=== PATIENT | male | born 1945 | race Caucasian/White ===

== ENCOUNTER → 2017-08-29 | Outpatient (CLI) | payer MEDICARE, BC ==
[~2017-08-29] MED LIST: AMLO5TAB2 PO; BUSP10TA PO; BUSP5TA PO; COUM2.5T17 PO; DOXE50CA PO; HYDR-3713 PO; HYDR25TAB PO; LEVO125T4 PO; MAGN1TAB25 PO; MULTCAP PO; PERCOCET PO; POTA595T8 PO; VITA100067 PO; ZINC50TA PO; ZOLP5TAB PO; [UNRECOGNIZED DRUG - CODE] PO; aspirin OR; buspirone OR; vitamin D OR
--- NOTE | 2017-08-29 13:00 | REP ---
Three-phase radionuclide bone scan of the knees: The patient has a left knee arthroplasty. The vascular phase of the study is bilaterally symmetric. On the soft tissue phase there is circumferential uptake at the femoral portion of the arthroplasty extending superiorly in the suprapatellar pouch. On the skeletal phase of the study there is a slight uptake at the interface of the tibial portion of the arthroplasty, not unusual. There is also uptake in the right knee, likely degenerative. Impression: The findings are nonspecific but are compatible with synovial inflammation in the suprapatellar pouch . There is slight uptake at the interface of the arthroplasty, not unusual. On the vascular phase, the uptake is bilaterally symmetric. Signed by Kendell Guerra MD 08/29/2017 12:51 P
== END ==
LOC: M RAD 09:42
PROVIDERS: ATTEND Physician Assistant Surgical
DX: Z96.652 Presence of left artificial knee joint (principal)
CPT/HCPCS: 78315; A9503

== ENCOUNTER → 2019-04-20 | Outpatient (CLI) | payer MEDICARE, BC, OTHER ==
[~2019-04-20] MED LIST changes: +ACET-897 PO; +AMBI5TAB PO; -AMLO5TAB2 PO; +AMLO5TAB6 PO; +ASPI81TA85 PO; +BENA25CA4 PO; +CARI200T PO; +HYDR-2541 PO; -MAGN1TAB25 PO; +MAGN1TAB26 PO; +MAGN400C PO; +MELA3TAB42 PO; +MYRB50TA PO; +SILD25TA PO; +SOMA350T PO; +VITA-157 PO; +VITAD1000T PO; +ZINC1TAB2 PO; -[UNRECOGNIZED DRUG - CODE] PO
[2019-04-20 12:11] LABS: HEMOGLOBIN 13.2 g/dl (13.5-17.5); MEAN CORPUSCULAR HEMOGLOBIN 38.5 pg (27.0-33.0); MEAN CORPUSCULAR HGB CONC 35.7 g/dl (32.0-36.5); MEAN CORPUSCULAR VOLUME 107.9 fl (80.0-96.0); PLATELET COUNT, AUTOMATED 287 10^3/uL (150-450); RED BLOOD COUNT 3.43 10^6/uL (4.30-6.10); WHITE BLOOD COUNT 6.4 10^3/uL (4.0-10.0)
[2019-04-20 12:21] LABS: INR 1.06; PROTHROMBIN TIME 13.9 SECONDS (12.1-14.4)
[2019-04-20 12:38] LABS: ERYTHROCYTE SEDIMENTATION RATE 7 mm/hr (0-20)
--- NOTE | 2019-04-20 12:38 | REP ---
Chest two views HISTORY: Preop Comparison: 02/28/2016 The lungs are clear. The heart is normal in size. The pulmonary vasculature is normal in appearance. A large hiatal hernia is present. The bony structure is intact. IMPRESSION: 1. No acute disease. 2. Large hiatal hernia. Electronically Signed by Mitchel Orozco MD 04/20/2019 12:29 P
[2019-04-20 12:55] LABS: ALBUMIN 3.9 GM/DL (3.2-5.2); ALT/SGPT 25 U/L (12-78); BILIRUBIN,TOTAL 1.6 MG/DL (0.2-1.0); BLOOD UREA NITROGEN 17 MG/DL (7-18); CALCIUM LEVEL 8.5 MG/DL (8.8-10.2); CARBON DIOXIDE LEVEL 26 MEQ/L (21-32); CHLORIDE LEVEL 104 MEQ/L (98-107); CREATININE FOR GFR 0.86 MG/DL (0.70-1.30); GLOMERULAR FILTRATION RATE > 60.0 (>42); GLUCOSE, FASTING 87 MG/DL (70-100); POTASSIUM SERUM 3.9 MEQ/L (3.5-5.1); SODIUM LEVEL 139 MEQ/L (136-145); TOTAL PROTEIN 6.6 GM/DL (6.4-8.2)
--- NOTE | 2019-04-20 20:51 | ECGEPIP ---
[facility] Test Date: 2019-04-20 Pat Name: PEREZ FLORES Department: Room: - Gender: Male Kitchen Cleaner: : 1945 Requested By: Noel Landaverde Order Number: [id number] Reading MD: Syed Fletcher Measurements Intervals [place] Rate: 63 P: 68 ID: [id number] QRS: 43 QRSD: 93 T: 41 QT: 400 QTc: 411 Interpretive Statements SINUS RHYTHM Normal Electronically Signed on 04-20-2019 20:51:19 EDT by Syed Fletcher
== END ==
LOC: M LAB 11:14
PROVIDERS: ATTEND Orthopaedic Surgery
DX: M16.12 Unilateral primary osteoarthritis, left hip (principal); Z79.01 Long term (current) use of anticoagulants

== ENCOUNTER 2019-05-03 05:44 | Inpatient (IN) | payer MEDICARE, BC, OTHER ==
--- NOTE | 2019-04-30 11:26 | HPE ---
DATE OF ADMISSION: 05/03/2019 ATTENDING PHYSICIAN: Dr. Noel Landaverde. CHIEF COMPLAINT: Left hip pain and stiffness. HISTORY: The patient is a pleasant 74-year-old male with progressively worsening left hip pain and stiffness. He has failed to improve with conservative measures. He continues to have symptoms with weightbearing activities and activities of daily living. The patient has consented for an elective left total hip arthroplasty with Dr. Landaverde for his continued symptoms. Medical optimization completed with Dr. Mitchel Gray and was reviewed today at visit. CURRENT MEDICATIONS: - Ambien 10 mg 1/2 tablet at bedtime - aspirin 81 mg daily - Benadryl 25 mg twice daily as needed - carisoprodol 350 mg as needed every hour - doxepin 50 mg daily - stool softener 100 mg daily - [id number] mcg daily - magnesium 200 mg daily - daily multivitamin - Myrbetriq 50 mg daily - [place] 5/325 mg every 6 hours as needed - Viagra 25 mg as needed - Ventolin inhaler every 4 hours as needed. - vitamin D, vitamin E. ALLERGIES: No known drug allergies CHRONIC MEDICAL CONDITIONS: Hypertension. Stomach ulcer. Heart murmur. Arthritis. Low back pain. Anxiety. Hypothyroid. Reactive airway disease. Anemia. History of prostate cancer. PAST SURGICAL HISTORY: Bunionectomy. Deviated septum. Bilateral total knee arthroplasties. Right hip arthroplasty. Stomach ulcer. Left foot surgery. SOCIAL HISTORY: He is a former smoker and does use alcohol daily. REVIEW OF SYSTEMS: The patient denies fevers, chills, nausea, vomiting or diarrhea. He denies chest pain, shortness of breath, lightheadedness, headaches or abdominal pain. He denies any recent upper respiratory or urinary tract infection symptoms. He does not have continued left hip pain with weightbearing activities and activities of daily living. PHYSICAL EXAMINATION: GENERAL: Well-nourished, well-developed male in no apparent distress. He is alert, oriented and cooperative. Mood and affect are appropriate. VITAL SIGNS: Blood pressure 103/60, respirations 16, heart rate 62, height 67 inches, weight 198.9 pounds. BMI 31.1, temperature 97.6. NECK: Supple without lymphadenopathy. HEART: Regular rate and rhythm. LUNGS: Clear to auscultation bilaterally. ABDOMEN: Soft and nontender to palpation. Bowel sounds are present. MUSCULOSKELETAL: Left hip exhibits no gross abnormalities. His skin is intact. There is mild tenderness along the morning and anterolateral thigh. The patient has significantly decreased flexion and internal rotation at the hip. Left lower extremity strength is 5/5. Calf is soft, nontender to palpation with no palpable cords noted. He is neurovascularly intact distally. He is walking with a limp favoring the left lower extremity. LABORATORY DATA EKG sinus rhythm. Chest x-ray: No acute disease, large hiatal hernia. Left hip x-ray notable for end-stage degenerative changes. Prothrombin time 13.9, INR 1.06. Complete blood count: ESR 7, WBCs 6.4, RBCs decreased at 3.43, hemoglobin decreased at 13.2, hematocrit decreased at 37, MCV elevated at 107.9, MCH elevated at 38.5, platelets 287. Comprehensive metabolic profile: Fasting glucose 87, BUN 17, creatinine for GFR 0.86, GFR greater than 60, sodium 139, potassium 3.9, chloride 104, carbon dioxide 26, anion gap 9, calcium decreased at 8.5, AST 15, ALT 25, alkaline phosphatase 114, total bilirubin elevated at 1.6, total protein 6.6, albumin 3.9, albumin-globulin ratio 1.44. IMPRESSION: Left hip degenerative arthritis with x-rays notable for end-stage degenerative changes. PLAN: The patient has consented for an elective left total hip arthroplasty with Dr. Landaverde. Medical optimization completed with Dr. Mitchel Gray.
[~2019-05-03] VITALS: Ht 152.4 cm; Wt 92.4 kg
[2019-05-03] MEDS ORDERED: ceFAZolin 2 GM/D5W 50 ML IV BAG (J0690 PER 500MG) As Ordered ONE (06:11)
[2019-05-03] MEDS ORDERED: LR 1,000 ML IV ONE (06:15)
[2019-05-03] MEDS ORDERED: EPINEPHrine INJ 1 MG/ML 1ML AMP As Ordered ONE (06:59)
[2019-05-03] MEDS ORDERED: TRANEXAMIC ACID 100 MG/ML 10ML VIAL As Ordered ONE (07:00)
[2019-05-03] MEDS ORDERED: BUPIVACAINE LIPOSOME/PF 1.3% 20ML VIAL (13.3MG/ML)(EXPAREL)(C9290 PER1MG) As Ordered ONE (07:00)
[2019-05-03] MEDS ORDERED: fentaNYL 100 MCG/2 ML INJECTION (J3010) As Ordered ONE (07:08)
[2019-05-03] MEDS ORDERED: MIDAZOLAM INJ 2 MG/2 ML VIAL (J2250) As Ordered ONE (07:09)
[2019-05-03] MEDS ORDERED: ONDANSETRON 4MG/2ML VIAL (J2405) As Ordered ONE (07:09)
[2019-05-03] MEDS ORDERED: PROPOFOL 200 MG/20 ML VIAL As Ordered ONE ×2 (07:09→08:55)
[2019-05-03] MEDS ORDERED: LIDOCAINE 2% INJ 100 MG/5 ML SDV (FOR ANES.) As Ordered ONE (07:13)
[2019-05-03] MEDS: ceFAZolin 1GM INJ (J0690 PER 500MG) As Ordered ONE ×2 (07:49→08:15)
[2019-05-03] MEDS ORDERED: KETAMINE HCL 200 MG/20 ML VIAL As Ordered ONE (08:35)
--- NOTE | 2019-05-03 08:51 | IPN ---
DATE OF SERVICE: 05/03/2019 Patient seen and examined. He wished to go ahead with a left total hip arthroplasty. He understands the nature of this, the risks of bleeding, infection, damage to nerves, vessels, persistent pain, wear, loosening, dislocation, leg length inequality, blood clots, medical problems, , among others. Preop clearance was obtained. Site and side initialed left hip.
[2019-05-03] MEDS ORDERED: ePHEDrine SULFATE 25 MG/5 ML(5MG/ML) SYRINGE As Ordered ONE (08:52)
[2019-05-03] MEDS ORDERED: PHENYLephrine HCL 500 MCG/5 ML (100MCG/ML) SYRINGE (J2370) As Ordered ONE (08:52)
[2019-05-03] MEDS ORDERED: HYDROMORPHONE HCL 0.5 MG/ 0.5 ML SYRINGE (J1170 PER 1) IV PRN (10:00)
[2019-05-03] MEDS ORDERED: ONDANSETRON 4MG/2ML VIAL (J2405) IV PRN ×2 (10:00→11:00)
[2019-05-03] MEDS ORDERED: LR 1,000 ML IV SCH ×2 (10:00→11:00)
[2019-05-03] MEDS: fentaNYL 100 MCG/2 ML INJECTION (J3010) IV PRN ×4 (10:20→10:35)
[2019-05-03] MEDS: PERCOCET 5MG/325MG TAB PO PRN ×4 (10:26→19:44)
--- NOTE | 2019-05-03 10:42 | REP ---
PORTABLE LEFT HIP: Two views. HISTORY: Postop. FINDINGS: AP and cross-table lateral portably obtained views of the left hip demonstrate that the patient is status post left hip arthroplasty. Arthroplasty components appear to be in good position relative to each other and their [place] bones. Lateral skin shaniqua are seen. Electronically Signed by Jasson Hernandez MD 05/03/2019 01:37 P
[2019-05-03] MEDS ORDERED: ACETAMINOPHEN TAB 650MG DOSE (2X325MG) PO PRN (11:00)
[2019-05-03] MEDS ORDERED: FLEET ENEMA PR PRN (11:00)
[2019-05-03] MEDS ORDERED: MORPHINE 4 MG/ML 1ML VIAL/SYRINGE (J2270) IV PRN ×2 (11:00)
[2019-05-03 11:34] VITALS: BP 116/69
[2019-05-03 12:53] VITALS: BP 116/68
--- NOTE | 2019-05-03 14:36 | RO ---
DATE OF PROCEDURE: 05/03/2019 PREOPERATIVE DIAGNOSIS: Left hip osteoarthritis. POSTOPERATIVE DIAGNOSIS: Left hip osteoarthritis. PROCEDURE: Left total hip total hip arthroplasty using a [place] size 6 high offset with a 40 ball and a 62 cup. SURGEON: Noel Landaverde MD STEAMER BLOCKER: Salas Borden PA-C ANESTHESIA: Spinal. ESTIMATED BLOOD LOSS (EBL): 300. COMPLICATIONS: None. INDICATIONS: This is a 74-year-old gentleman who has had persistent left hip pain and wished to go ahead with a hip replacement. DESCRIPTION OF PROCEDURE: The patient was taken to the operating room and placed in supine position after spinal was introduced. He was then turned into the right lateral decubitus position. The left hip was then prepped and draped. Time-out was performed. I created a longitudinal incision over the lateral aspect of the hip. Sharp dissection was carried down through subcutaneous tissue. Controlled hemostasis with the cautery. He did tend to bleed a fair amount through the case. I then divided the fascia alley in the abductor about 40% of it, divided out the anterior aspect of the hip, and gradually exposed the femoral neck as we dislocated and put the leg in the bag. I then used the canal-initiating reamer, followed by the canal-finding reamer, lateralizing reamer, and sequentially reamed up to a size 6, which had a good bony purchase. I then used a saw to cut the neck off at about a fingerbreadth up from the lesser trochanter. We then prepared the acetabulum. Anterior and posterior retractors were placed, and soft tissue was removed from around the acetabulum, and I sequentially reamed up to a size 61 which had good concentric reaming and good bleeding bone, and I was able to medialize it down to the floor. Irrigated and then impacted and a 62 acetabular component impacted in place. It was well seated. I removed some osteophytes from around the rim and placed the apex hole eliminator, followed by the polyethylene, which was impacted in place. I made sure it was seated. I had irrigated multiple times up to this point. Again irrigated. At this point, I then irrigated the canal and broached up to a size 6, which I was able to countersink slightly, which was fine, because I felt my neck cut was a little bit on the long side. So, I countersunk the broach a couple of millimeters, and it had a very solid fit. I then calcar planed down to the broach, and the neck length appeared to be appropriate at this point, about three-quarters of a fingerbreadth. I then did a trial reduction with a 1.5 and a +5 size 40, put the hip through range of motion, was very pleased with the stability of the +5, minimal shuck in full extension and excellent stability in extension external rotation and flexion internal rotation. There was minimal shuck. Overall, very pleased. I then removed the trial components, irrigated, impacted in the high offset size 6 [place] stem, and made sure this was well seated. I dried the taper, impacted on the +5 40 ball. Made sure this was seated. We reduced the hip, put the hip through a range of motion. Excellent stability was noted. Excellent range of motion. Positioning appear to be excellent. I then irrigated copiously, closed the minimus with #1 Vicryl suture, the abductor with #1 Vicryl suture, with several being placed through the bone. Irrigated, closed the fascia alley with #1 Vicryl suture in a running Stratafix in both directions. Irrigated, closed the subcutaneous with 2-0 Vicryl and the skin with shaniqua. I did inject some Exparel in the deep tissues, and some Tranexamic acid (TXA) solution was used in the deep tissues for a couple minutes, and then irrigated out. Sterile dressing was applied. He was taken to recovery room in stable condition. There were no known complications. The plan will be routine postoperative. The video library assistant was instrumental in holding retractors and assisting in dislocating and reducing the hip and assisting in wound closure.
--- NOTE | 2019-05-03 16:59 | CR.PDOC ---
General Date of Consultation: May 03, 2019 Consultation REASON FOR CONSULTATION/CHIEF COMPLAINT: . Mgmt of medical co-morbidities HISTORY OF PRESENT ILLNESS: . 74-year-old male with past medical history of hypertension, hypothyroidism, anxiety, chronic pain, and asthma was admitted under the orthopedic service for elective left hip replacement. The hospitalist service has been consulted from optimization of the patient's medical comorbidities. At this time, the patient denies any acute complaints of fevers, chills, chest pain, palpitations, abdominal pain, or any nausea/vomiting/diarrhea. ALLERGIES: Please see below. HOME MEDICATIONS: Please see below. PAST MEDICAL HISTORY: As noted in HPI PAST SURGICAL HISTORY: Bunionectomy. Deviated septum. Bilateral total knee arthroplasties. Right hip arthroplasty. Stomach ulcer. Left foot surgery. SOCIAL HISTORY: Former tobacco user, admits to having a drink every other day. Denies any illicit drug use. REVIEW OF SYSTEMS: 10 point review of systems negative unless otherwise specified in the HPI PHYSICAL EXAMINATION: VITAL SIGNS: Please see below. GENERAL APPEARANCE: . Awake, Alert, Oriented x 3 HEENT: .Normocephalic, Atraumatic RESPIRATORY: .CTA B/L CARDIOVASCULAR: . Normal Rate, Normal S1, S2 ABDOMEN: .Soft, NT, ND EXTREMITIES: . Left Hip with limited ROM 2/2 recent surgical intervention. Extremity neurovascularly intact distally. LABORATORY DATA: Please see below. ASSESSMENT/PLAN: s/p Left Hip Replacement Peripoperative mgmt as per Ortho service HTN Hold HCTZ until labs in the AM Hypothyroidism Cont Levothyroxine Anxiety Cont Buspar Asthma, stable Duoneb prn DVT Prophylaxis On Xarelto as per Ortho Vital Signs/I&O Vital Signs Date Time Temp Pulse Resp B/P (MAP) Pulse Ox O2 Delivery O2 Flow Rate FiO2 05/03/19 15:40 18 05/03/19 12:53 98.2 84 116/68 (30) 95 Allergies Coded Allergies: Grass (Verified Allergy, Unknown, 05/03/19) TREES (Verified Allergy, Unknown, 05/03/19) mold (Verified Allergy, Unknown, 05/03/19) Home Medications Scheduled Acetaminophen (Tylenol Extra Strength) 500 Mg Tablet, 1,000 MG PO QHS, (Reported) Acetaminophen (Tylenol Extra Strength) 500 Mg Tablet, 1,000 MG PO PRN, (Reported) Amlodipine Besylate (Amlodipine Besylate) 5 Mg Tab, 5 MG PO QHS, (Reported) Aspirin (Aspir 81) 81 Mg Tablet.dr, 81 MG PO DAILY, #30 (Reported) Buspirone HCl (Buspirone HCl) 5 Mg Tab, 25 MG PO QPM, (Reported) Buspirone HCl (Buspirone HCl) 10 Mg Tab, 20 MG PO QAM, (Reported) Carisoprodol (Soma) 350 Mg Tablet, 87.5 MG PO QHS, (Reported) Diphenhydramine HCl (Benadryl) 25 Mg Capsule, 50 MG PO QHS, (Reported) Diphenhydramine HCl (Benadryl) 25 Mg Capsule, 25 MG PO BID, (Reported) Doxepin HCl (Doxepin HCl) 50 Mg Cap, 50 MG PO QHS, (Reported) Hydrochlorothiazide (Hydrochlorothiazide) 25 Mg Tablet, 25 MG PO DAILY, (Reported) Levothyroxine Sodium (Levothyroxine Sodium) 125 Mcg Tab, 125 MCG PO DAILY, (Reported) Melatonin (Melatonin) 3 Mg Tablet, 3 MG PO QHS, (Reported) Mirabegron (Myrbetriq) 50 Mg Tab.er.24h, 50 MG PO DAILY, (Reported) Multivitamin (Multivitamins) 1 Cap Cap, 1 CAP PO DAILY, (Reported) Potassium Gluconate (Potassium Gluconate) 99 Mg Tablet, 595 MG PO DAILY, (Reported) Sildenafil Citrate (Viagra) 25 Mg Tablet, 25 MG PO DAILY, (Reported) Vitamin D (Vitamin D3) 1,000 Unit Tablet, 1,000 UNITS PO DAILY, (Reported) Vitamin E (Dl,Tocopheryl Acet) (Vitamin E) 400 Unit Capsule, 400 UNIT PO DAILY, (Reported) Zinc (Zinc) 50 Mg Tablet, 50 MG PO DAILY, (Reported) Zolpidem Tartrate (Ambien) 5 Mg Tablet, 5 MG PO PRN, (Reported) Scheduled PRN Hydrocodone/Acetaminophen (Hydrocodone-Acetamin 5-325 mg) 1 Each Tablet, 1 TAB PO Q6H PRN for PAIN, #20 (Reported) MDD 4 Miscellaneous Medications Magnesium Oxide (Magnesium) 400 Mg Capsule, 400 MG PO, (Reported) JUAN F STALLINGS MD May 03, 2019 16:59
[2019-05-03] MEDS ORDERED: IPRATROPIUM 0.5MG/ALBUTEROL 2.5MG INH SOL UD 3ML (DUONEB)(J7620) NEB PRN (17:00)
[2019-05-03 20:28] VITALS: BP 122/68
[2019-05-03] MEDS: busPIRone 5 MG TAB PO SCH (20:28)
[2019-05-03] MEDS: amLODIPine 5 MG TAB PO SCH (20:29)
[2019-05-03 20:55] VITALS: BP 115/65
[2019-05-04] MEDS: PERCOCET 5MG/325MG TAB PO PRN ×5 (01:59→22:19)
[2019-05-04 03:29] VITALS: BP 102/62
[2019-05-04] MEDS: LEVOTHYROXINE 125MCG TABLET (0.125MG) PO SCH (05:05)
[2019-05-04 06:00] VITALS: BP 104/60
[2019-05-04 06:32] LABS: HEMATOCRIT 24.6 % (42.0-52.0); HEMOGLOBIN 8.8 g/dl (13.5-17.5); MEAN CORPUSCULAR HEMOGLOBIN 38.1 pg (27.0-33.0); MEAN CORPUSCULAR HGB CONC 35.8 g/dl (32.0-36.5); MEAN CORPUSCULAR VOLUME 106.5 fl (80.0-96.0); PLATELET COUNT, AUTOMATED 205 10^3/uL (150-450); RED BLOOD COUNT 2.31 10^6/uL (4.30-6.10); WHITE BLOOD COUNT 11.2 10^3/uL (4.0-10.0)
[2019-05-04 07:01] LABS: BLOOD UREA NITROGEN 13 MG/DL (7-18); CALCIUM LEVEL 7.6 MG/DL (8.8-10.2); CARBON DIOXIDE LEVEL 29 MEQ/L (21-32); CHLORIDE LEVEL 101 MEQ/L (98-107); CREATININE FOR GFR 0.87 MG/DL (0.70-1.30); GLOMERULAR FILTRATION RATE > 60.0 (>42); GLUCOSE, FASTING 105 MG/DL (70-100); POTASSIUM SERUM 3.7 MEQ/L (3.5-5.1); SODIUM LEVEL 135 MEQ/L (136-145)
[2019-05-04 09:51] VITALS: BP 125/62
[2019-05-04] MEDS: MAGNESIUM OXIDE 400 MG TAB (MAG-OX) PO SCH (09:55)
[2019-05-04] MEDS: VITAMIN D 1,000 INTERNATIONAL UNITS TABLET PO SCH (09:55)
[2019-05-04] MEDS: busPIRone 10 MG TAB PO SCH (09:55)
[2019-05-04] MEDS: MIRALAX *UNIT DOSE* 17GM PACKET PO SCH (09:56)
[2019-05-04] MEDS: MOM 30ML SUSPENSION UDC PO SCH (09:56)
[2019-05-04 14:29] VITALS: BP 127/62
[2019-05-04] MEDS ORDERED: RIVAROXABAN 10 MG TAB (XARELTO) PO SCH (18:00)
--- NOTE | 2019-05-04 18:09 | IPNPDOC ---
Text Note Date of Service The patient was seen on 05/04/19. NOTE Subjective: The patient is status post left total hip arthroplasty. He has been quite ambulatory. He has had minimal discomfort. Objective:The patient has been afebrile. Systolic blood pressures range from 125-127. O2 sats are 94-100% on room air. HENT: Neck is supple with no adenopathy or thyromegaly, oral mucosa is moist. Cardiovascular: Regular rate and rhythm with a loud systolic murmur grade 5/6. Respiratory: Lungs are clear to auscultation with no rhonchi, rales, wheezes or cough. Abdomen: Soft, nontender, nondistended, normal bowel tones. Extremities: No pedal edema, pedal pulses are palpable, hip site is intact with no bleeding or drainage. Neuro: No focal neuromotor or sensory deficit. Psych: No notable cognition deficit Assessment/plan: Patient is status post right total hip arthroplasty. He is ambulatory. Note is made of patient's hemoglobin of 8.8. It was 13.2 preoperatively. Patient has not had symptoms such as dizziness or lightheadedness or hypoxia. We will recheck his hemoglobin; if there is a significant drop or if he is symptomatic, we will consider transfusion. The patient's pain is otherwise well controlled. Tentative plans are for the patient to be discharged home tomorrow. VS,Fishbone, I+O VS, Fishbone, I+O Laboratory Tests 05/04/19 06:20 Red Blood Count 2.31 L, Mean Corpuscular Volume 106.5 H, Mean Corpuscular Hemoglobin 38.1 H, Mean Corpuscular Hemoglobin Concent 35.8, Red Cell Dis tribution Width 15.7 H, Calcium Level 7.6 L Vital Signs Date Time Temp Pulse Resp B/P (MAP) Pulse Ox O2 Delivery O2 Flow Rate FiO2 05/04/19 14:37 16 05/04/19 14:29 97.1 84 127/62 (83) 100 I&O- Last 24 Hours up to 6 AM 05/04/19 06:00 Intake Total 2095 ml Output Total 300 ml Balance 1795 ml MORELIA ADAN MD May 04, 2019 18:09
[2019-05-04 22:00] VITALS: BP 125/63
[2019-05-04 22:18] VITALS: BP 125/63
[2019-05-04] MEDS: amLODIPine 5 MG TAB PO SCH (22:18)
[2019-05-04] MEDS: busPIRone 5 MG TAB PO SCH (22:18)
[2019-05-05] MEDS: LEVOTHYROXINE 125MCG TABLET (0.125MG) PO SCH (06:42)
[2019-05-05] MEDS: PERCOCET 5MG/325MG TAB PO PRN ×2 (06:43→13:47)
[2019-05-05] MEDS ORDERED: PERC5TAB12 PO (07:21)
[2019-05-05] MEDS ORDERED: XARE10TA PO (07:21)
[2019-05-05 07:29] LABS: HEMATOCRIT 24.8 % (42.0-52.0); HEMOGLOBIN 8.6 g/dl (13.5-17.5); MEAN CORPUSCULAR HEMOGLOBIN 38.6 pg (27.0-33.0); MEAN CORPUSCULAR HGB CONC 34.7 g/dl (32.0-36.5); MEAN CORPUSCULAR VOLUME 111.2 fl (80.0-96.0); PLATELET COUNT, AUTOMATED 208 10^3/uL (150-450); RED BLOOD COUNT 2.23 10^6/uL (4.30-6.10); WHITE BLOOD COUNT 8.9 10^3/uL (4.0-10.0)
[2019-05-05] MEDS ORDERED: MAGNESIUM CITRATE 300 ML BTL PO ONE (08:00)
[2019-05-05] MEDS: MIRALAX *UNIT DOSE* 17GM PACKET PO SCH (10:05)
[2019-05-05] MEDS: MOM 30ML SUSPENSION UDC PO SCH (10:05)
[2019-05-05] MEDS: MAGNESIUM OXIDE 400 MG TAB (MAG-OX) PO SCH (10:06)
[2019-05-05] MEDS: VITAMIN D 1,000 INTERNATIONAL UNITS TABLET PO SCH (10:06)
[2019-05-05] MEDS: busPIRone 10 MG TAB PO SCH (10:06)
[2019-05-05 14:13] VITALS: BP 123/69
== END 2019-05-05 15:00 | disposition home or self-care (01) | DRG 470 ==
LOC: M OR 05:44 → M MS5PR 11:15
PROVIDERS: ADMIT Orthopaedic Surgery; ATTEND Orthopaedic Surgery
PROC: 0SRB02A Replacement of Left Hip Joint with Metal on Polyethylene Synthetic Substitute, Uncemented, Open Approach (ICD-10-PCS; principal; 2019-05-03 07:30)
DX: M16.12 Unilateral primary osteoarthritis, left hip (principal); M54.5 Low back pain; Z96.641 Presence of right artificial hip joint; Z96.652 Presence of left artificial knee joint; Z96.651 Presence of right artificial knee joint; Z79.82 Long term (current) use of aspirin; Z79.899 Other long term (current) drug therapy; I10 Essential (primary) hypertension; E03.9 Hypothyroidism, unspecified; J45.909 Unspecified asthma, uncomplicated; D64.9 Anemia, unspecified; Z85.46 Personal history of malignant neoplasm of prostate; Z87.891 Personal history of nicotine dependence; F10.10 Alcohol abuse, uncomplicated

== ENCOUNTER → 2020-05-21 | Outpatient (CLI) | payer MEDICARE, BC, OTHER ==
[~2020-05-21] MED LIST changes: +CHOL100029 PO; -MELA3TAB42 PO; +MELA3TAB59 PO; +PERC5TAB12 PO; -VITAD1000T PO; +XARE10TA PO
== END ==
LOC: M LABSMTC 10:18
PROVIDERS: ATTEND Orthopaedic Surgery
DX: Z03.818 Encounter for observation for suspected exposure to other biological agents ruled out (principal); Z11.59 Encounter for screening for other viral diseases

== ENCOUNTER → 2021-07-20 | Outpatient (CLI) | payer MEDICARE, BC, OTHER ==
[~2021-07-20] MED LIST changes: +AMLO1TAB24 PO; -AMLO5TAB6 PO; -ASPI81TA85 PO; +ASPI81TA86 PO; +CLAR10TA2 PO; +ECOT81TA5 PO; +HYDR-3490 PO; -HYDR25TAB PO; +MELA3TAB29 PO; -MELA3TAB59 PO; +NOXI1TAB PO; +SUPECAP7 PO; -VITA-157 PO; +VITA400C49 PO; +VITAE40CA PO; +VITMTA PO
== END ==
LOC: M LABSMTC 11:13
PROVIDERS: ATTEND Anesthesiology
DX: Z01.812 Encounter for preprocedural laboratory examination (principal); Z20.828 Contact with and (suspected) exposure to other viral communicable diseases

== ENCOUNTER 2021-07-25 11:54 | Day surgery (SDC) | payer MEDICARE, BC, OTHER ==
[~2021-07-25] VITALS: Ht 175.3 cm; Wt 89.5 kg
[~2021-07-25 11:54] MED LIST changes: +LR 1,000 ML IV ONE; +ceFAZolin SOD 2 GM in IV 1 EA IV ONE
[2021-07-25] MEDS ORDERED: propofoL 200 MG/20 ML VIAL As Ordered ONE (13:08)
[2021-07-25] MEDS ORDERED: LIDOCAINE 2% 100MG/5ML SDV (FOR ANES.) As Ordered ONE (13:08)
[2021-07-25] MEDS ORDERED: ONDANSETRON 4MG/2ML VIAL As Ordered ONE (13:08)
[2021-07-25] MEDS ORDERED: fentaNYL 250 MCG/5 ML INJECTION (J3010) As Ordered ONE (13:08)
[2021-07-25] MEDS ORDERED: dexameTHASONE 4 MG/ML 1ML VIAL (J1100 PER 1MG) As Ordered ONE (13:08)
[2021-07-25] MEDS ORDERED: MIDAZOLAM INJ 2MG/2ML VIAL (J2250 PER 1MG) As Ordered ONE (13:09)
[2021-07-25] MEDS ORDERED: BUPIVACAINE HCL 0.25% 30ML VIAL As Ordered ONE (13:15)
[2021-07-25] MEDS ORDERED: BACITRACIN OINTMENT 30GM TUBE As Ordered ONE (13:15)
[2021-07-25] MEDS ORDERED: LIDOCAINE 1% MDV 20ML VIAL As Ordered ONE (13:15)
[2021-07-25] MEDS ORDERED: KETOROLAC 60MG 2ML VIAL As Ordered ONE (14:33)
[2021-07-25] MEDS ORDERED: ACETAMINOPHEN 1000MG 100ML IV BTL (OFIRMEV) (J0131 PER 10MG) As Ordered ONE (14:33)
[2021-07-25] MEDS ORDERED: METOCLOPRAMIDE INJ 10MG/2ML VIAL (J2765 PER 1) IV PRN (15:10)
[2021-07-25] MEDS ORDERED: PERCOCET 5MG/325MG TAB PO PRN (15:10)
[2021-07-25] MEDS ORDERED: LR 1,000 ML IV SCH (15:10)
[2021-07-25] MEDS ORDERED: fentaNYL 100 MCG/2 ML INJECTION (J3010) IV PRN (15:10)
[2021-07-25] MEDS ORDERED: ONDANSETRON 4MG/2ML VIAL IV PRN (15:10)
--- NOTE | 2021-07-25 15:49 | ROOPDOC ---
[facility] Report Of Operation Report of Operation DATE OF PROCEDURE: 07/25/21 PREPROCEDURE DIAGNOSES: Right hydrocele POSTPROCEDURE DIAGNOSES: Same PROCEDURE PERFORMED: Right hydrocelectomy SURGEON: Izabella Triana MD ANESTHESIA: General ESTIMATED BLOOD LOSS: Approximately 5 mL. COMPLICATIONS: None FINDINGS: Normal straw color fluid from the hydrocele sac SPECIMENS REMOVED: None PROCEDURE NOTE: The patient is a 76-year-old gentleman with a bothersome right hydrocele. After discussing all different options, alternatives, risk, and benefits he decided that he wanted to have this surgically removed. Informed consent was obtained both verbal and written form. DESCRIPTION OF PROCEDURE: The patient was brought into the operating room and sequential compression devices were in place. Preoperative antibiotics were given. Anesthesia was induced. He was supine on a padded operating table and he was prepped and draped in the usual fashion. A horizontal incision was made over the right hemiscrotum. Dartos fascia was opened and then we opened tunica vaginalis. Straw-colored fluid was drained and the tunica vaginalis was brought behind the testicle to prevent recurrent cystocele. [place] fascia was then reapproximated using 2-0 chromic sutures and skin was closed using 2-0 chromic sutures. The patient tolerated the procedure well and was returned to the recovery room in stable condition. The testicle and epididymis appeared to be totally normal. IZABELLA TRIANA MD Jul 25, 2021 15:48
[2021-07-25 17:30] VITALS: BP 124/61
== END 2021-07-25 17:35 | disposition home or self-care (01) ==
LOC: M SDC 11:54
PROVIDERS: ATTEND Specialist
DX: N43.3 Hydrocele, unspecified (principal); I10 Essential (primary) hypertension; E03.9 Hypothyroidism, unspecified; D64.9 Anemia, unspecified; Z79.899 Other long term (current) drug therapy; Z79.890 Hormone replacement therapy
CPT/HCPCS: 55040; J0131; J0690; J1100; J1885; J2250; J2405; J3010

== ENCOUNTER → 2022-09-11 | Outpatient (CLI) | payer MEDICARE, BC, OTHER ==
[~2022-09-11] MED LIST changes: -CARI200T PO; +IBUP200T46 PO; +LEVO175T2 PO; +LIDOCAINE 1% MDV 20ML VIAL As Ordered ONE; -LR 1,000 ML IV ONE; +[UNRECOGNIZED DRUG - CODE] PO; -ceFAZolin SOD 2 GM in IV 1 EA IV ONE
[2022-09-11 12:51] LABS: BASO # 0.1 10^3/uL (0.0-0.2); BASO % 1.7 % (0.0-1.0); EOS # 0.3 10^3/uL (0.0-0.5); EOS % 5.5 % (0.0-3.0); HEMATOCRIT 33.9 % (42.0-52.0); LYMPH # 1.8 10^3/uL (1.5-5.0); LYMPH % 37.1 % (24.0-44.0); MEAN CORPUSCULAR HEMOGLOBIN 37.6 pg (27.0-33.0); MEAN CORPUSCULAR HGB CONC 35.4 g/dl (32.0-36.5); MEAN CORPUSCULAR VOLUME 106.3 fl (80.0-96.0); MONO # 0.5 10^3/uL (0.0-0.8); MONO % 11.1 % (2.0-8.0); NEUTROPHILS # 2.1 10^3/uL (1.5-8.5); NEUTROPHILS % 44.4 % (36.0-66.0); PLATELET COUNT, AUTOMATED 236 10^3/uL (150-450); RED BLOOD COUNT 3.19 10^6/uL (4.30-6.10); WHITE BLOOD COUNT 4.8 10^3/uL (4.0-10.0)
[2022-09-11 13:19] VITALS: BP 124/69
== END ==
LOC: M IRPRO 11:57
PROVIDERS: ATTEND Specialist
DX: D53.9 Nutritional anemia, unspecified (principal)